=== PATIENT | male | born 1970 | race African-American/Black ===

== ENCOUNTER 2021-03-22 12:36 | Emergency (ER) | payer OTHER ==
[~2021-03-22] VITALS: Ht 160 cm; Wt 81.6 kg
[2021-03-22 12:50] VITALS: TEMP 97.5
[2021-03-22 14:00] VITALS: BP 153/95
== END 2021-03-22 14:00 | disposition home or self-care (01) ==
LOC: ED 12:36
DX: S91.331A Puncture wound without foreign body, right foot, initial encounter (principal); S91.031A Puncture wound without foreign body, right ankle, initial encounter; S20.419A Abrasion of unspecified back wall of thorax, initial encounter; S30.810A Abrasion of lower back and pelvis, initial encounter; S40.811A Abrasion of right upper arm, initial encounter; W54.0XXA Bitten by dog, initial encounter; Y92.89 Other specified places as the place of occurrence of the external cause
CPT/HCPCS: 96372; 99283; J0690; J1885